=== PATIENT | male | born 1990 | race Caucasian/White ===

== ENCOUNTER → 2019-11-03 | Outpatient (CLI) | payer OTHER, MEDICARE ==
[~2019-11-03] MED LIST: ADDERALL XR 3030 MG PO; AMBIEN 10 MG TA10 MG PO; LEVO-T50 MCG PO; LEVOXYL200 MCG PO; LISINOPRIL20 MG PO; NORCO 5-325 TA1 EAC1 PO; PHOSLO667 MG PO; RENAL-VITE TAB0.8 MG PO; RENVELA0.8 GM PO; ROCALTROL0.25 MCG PO; VITAMIN D325 MC3 PO; ZYRTEC10 M2 PO
== END ==
LOC: M.LAB 09:48
PROVIDERS: ATTEND Surgery
DX: Z01.818 Encounter for other preprocedural examination (principal); Z11.59 Encounter for screening for other viral diseases